=== PATIENT | male | born 2005 | race Caucasian/White ===

== ENCOUNTER 2024-12-08 03:12 | Emergency (ER) | payer OTHER ==
[~2024-12-08] VITALS: Ht 182.8 cm; Wt 63.5 kg
[2024-12-08] MEDS ORDERED: Bacitracin Zinc 14 GM TUBE T ONE (06:45)
[2024-12-08] MEDS ORDERED: METHOCARBAMOL500 M1 PO (06:50)
[2024-12-08] MEDS ORDERED: NAPROXEN250 MG PO (06:50)
== END 2024-12-08 07:01 | disposition home or self-care (01) ==
LOC: ED 03:12
DX: S01.112A Laceration without foreign body of left eyelid and periocular area, initial encounter (principal); S01.81XA Laceration without foreign body of other part of head, initial encounter; S80.02XA Contusion of left knee, initial encounter; V89.2XXA Person injured in unspecified motor-vehicle accident, traffic, initial encounter; Y93.89 Activity, other specified; Y92.410 Unspecified street and highway as the place of occurrence of the external cause; Y99.8 Other external cause status